=== PATIENT | male | born 1960 | race Caucasian/White ===

== ENCOUNTER 2016-09-15 13:42 | Emergency (ER) | payer OTHER ==
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
[2016-09-15 19:02] VITALS: BP 136/93
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
== END 2016-09-15 18:56 | disposition home or self-care (01) ==
LOC: ED 13:42
DX: M62.838 Other muscle spasm (principal); M54.2 Cervicalgia; V49.49XA Driver injured in collision with other motor vehicles in traffic accident, initial encounter; Y92.488 Other paved roadways as the place of occurrence of the external cause; Y93.89 Activity, other specified; Y99.9 Unspecified external cause status
CPT/HCPCS: 72040

== ENCOUNTER 2021-08-13 11:44 | Outpatient (CLI) | payer OTHER ==
--- NOTE | 2021-08-13 14:05 | XRay Report ---
CHEST 2 VIEWS INDICATION / CLINICAL INFORMATION: TUMOR IN CHEST AREA. COMPARISON: None available. FINDINGS: SUPPORT DEVICES: None. HEART / MEDIASTINUM: No significant abnormality. LUNGS / PLEURA: No significant pulmonary or pleural abnormality. No pneumothorax. ADDITIONAL FINDINGS: No significant additional findings. IMPRESSION: 1. No acute findings. There is concern for tumor based on history CT is recommended. Signer Name: Noe Hurtado MD Signed: 08/13/2021 2:01 PM Workstation Name: [id number] [email or web address]
--- NOTE | 2021-08-13 14:06 | XRay Report ---
Cervical spine 3 views INDICATION: Back pain FINDINGS: Discogenic degenerative changes seen throughout spine. Endplate changes with anterior poste rior disc. IMPRESSION: Discogenic degenerative changes seen throughout spine Signer Name: Noe Hurtado MD Signed: 08/13/2021 2:02 PM Workstation Name: [email or web address]
== END 2021-08-13 11:45 | disposition home or self-care (01) ==
LOC: XRAY 11:44
PROVIDERS: ATTEND Internal Medicine
DX: Z02.71 Encounter for disability determination (principal); M50.30 Other cervical disc degeneration, unspecified cervical region; G47.39 Other sleep apnea; G89.29 Other chronic pain; E11.9 Type 2 diabetes mellitus without complications; G43.909 Migraine, unspecified, not intractable, without status migrainosus
CPT/HCPCS: 71046; 72040